=== PATIENT | female | born 1995 | race Caucasian/White ===

== ENCOUNTER 2019-05-27 01:49 | Emergency (ER) | payer SELFPAY ==
[2019-05-27] MEDS ORDERED: levETIRAcetam 1000 MG/NS 0.75% 1,000 MG/100 ML BAG IV ONE (02:11)
[2019-05-27] MEDS ORDERED: IBUPROFEN 800 MG TAB PO ONE (02:12)
--- NOTE | 2019-05-27 03:10 | Emergency Department Report ---
ED Seizure HPI - General Chief Complaint: Seizure Stated Complaint: POSS SEIZURE Time Seen by Provider: 05/27/19 02:10 Source: patient, family Mode of arrival: Ambulatory Limitations: Language Barrier, Other - History of Present Illness Initial Comments: Keyana is a 23 yo female patient with hx of seizure disorder who presents with 2 generatlized tonic clonic seizure. The second seizure was witnessed by her sister in law. Keyana had taken Keppra in the past. She recently moved from [place] to be with her family here 9 months ago. Has not taken Keppra since that time. Has been in good health. Now after seizure, she has mild frontal headache. Complaint: seizure -: Sudden, This evening Description of Episode: loss of consciousness Witnessed:: Yes Trauma: No Seizure History: known seizure disorder, history of non-compliance Place: home Possible Precipitating Event: medication (lack of medication) Associated Symptoms: denies other symptoms - Related Data Previous Rx's Medication Instructions Recorded Last Taken Type levETIRAcetam [Keppra TAB] 500 mg PO BID 30 Days #60 tablet 05/27/19 Unknown Rx Allergies Allergy/AdvReac Type Severity Reaction Status Date / Time No Known Allergies Allergy Unverified 05/27/19 01:59 ED Review of Systems ROS: Stated complaint: POSS SEIZURE Other details as noted in HPI Comment: All other systems reviewed and negative Constitutional: denies: fever, malaise Respiratory: denies: cough Cardiovascular: denies: chest pain Neurological: headache ED Past Medical Hx - Past Medical History Previous Medical History?: Yes Hx Seizures: Yes - Surgical History Past Surgical History?: Yes Additional Surgical History: - Social History Smoking Status: Current Every Day Smoker Substance Use Type: None - Medications Home Medications: Home Medications Medication Instructions Recorded Confirmed Last Taken Type levETIRAcetam [Keppra TAB] 500 mg PO BID 30 Days #60 tablet 05/27/19 Unknown Rx ED Physical Exam - General Limitations: Language Barrier (sister in law provided lanugage interpretation according to wishes of patient), Other General appearance: alert, in no apparent distress - Head Head exam: Present: atraumatic, normocephalic - Eye Eye exam: Present: normal appearance - ENT ENT exam: Present: mucous membranes moist - Neck Neck exam: Present: normal inspection, full ROM. Absent: tenderness, meningismus - Respiratory Respiratory exam: Present: normal lung sounds bilaterally. Absent: respiratory distress, wheezes, rales, rhonchi - Cardiovascular Cardiovascular Exam: Present: regular rate, normal rhythm, normal heart sounds. Absent: systolic murmur, diastolic murmur, rubs, gallop - GI/Abdominal GI/Abdominal exam: Present: soft, normal bowel sounds. Absent: distended, tenderness, guarding, rebound - Extremities Exam Extremities exam: Present: normal inspection - Neurological Exam Neurological exam: Present: alert, oriented X3 - Psychiatric Psychiatric exam: Present: normal affect, normal mood - Skin Skin exam: Present: warm, dry, intact, normal color. Absent: rash ED Course Vital Signs 05/27/19 01:51 Temperature 98.7 F Pulse Rate 103 H Respiratory 12 Rate Blood Pressure 123/83 O2 Sat by Pulse 99 Oximetry ED Medical Decision Making - Medical Decision Making Ms. Vale presents with 2 breakthrough seizures with hx of seizure disorder. She had taken Keppra prior to moving from [place] to be with family. Rx: Keppra She received IV keppra load in the ED Critical care attestation.: If time is entered above; I have spent that time in minutes in the direct care of this critically ill patient, excluding procedure time. ED Disposition Clinical Impression: Seizure, Seizure disorder Disposition: DC-01 TO HOME OR SELFCARE Is pt being admited?: No Does the pt Need Aspirin: No Condition: Stable Instructions: Epilepsy (ED) Prescriptions: levETIRAcetam [Keppra TAB] 500 mg PO BID 30 Days #60 tablet Referrals: DANIEL MUNGUIA MD [Staff Physician] - 3-5 Days
[2019-05-27 05:10] VITALS: BP 84/51
== END 2019-05-27 03:40 | disposition home or self-care (01) ==
LOC: ED 01:49
DX: G40.909 Epilepsy, unspecified, not intractable, without status epilepticus (principal); F17.200 Nicotine dependence, unspecified, uncomplicated
CPT/HCPCS: 96374; 99283; J1953